=== PATIENT | male | born 1950 | race Caucasian/White ===

== ENCOUNTER 2019-01-25 07:14 | Emergency (ER) | payer MEDICARE, OTHER ==
[2019-01-25 07:23] VITALS: RESP 18
[2019-01-25] MEDS ORDERED: CYCLOBENZAPRINE 10 MG TAB PO STA (07:41)
[2019-01-25] MEDS ORDERED: HYDROmorphone 1 MG/ML 1 ML SYRINGE IM STA (07:41)
--- NOTE | 2019-01-25 07:49 | ED ---
Back Pain HPI - General Source: patient, RN notes reviewed Limitations: no limitations <Michael Leslie - Last Filed: 01/25/19 08:48> <Rakesh Figueroa - Last Filed: 01/25/19 15:16> - General Chief Complaint: Back Pain/Injury Stated Complaint: BACK PAIN Time Seen by Provider: 01/25/19 07:31 - History of Present Illness Initial Comments: 68-year-old male presents emergency Department with chief complaint of low back pain. Patient just started 5 days ago states when he woke up he sat up but little twinge in his back. He does have a history of 2 herniated disc in which she saw pain management for and had injections which alleviated all the symptoms. He's been symptom-free for urinary half. He did have an MRI at that time. He's had no recent imaging. Denies any bowel, bladder incontinence or retention. Patient states he does have some pain and paresthesia radiating to his groin and into his scrotum, the pain radiating only down his leg to his foot. Patient has no mental abdominal pain. Patient states that he cannot get comfortable. He states he has to keep changing positions. (Michael Leslie) - Related Data Home Medications Medication Instructions Recorded Confirmed Aspirin EC [Ecotrin Low Dose] 81 mg PO HS 01/25/19 01/25/19 Ibuprofen [Motrin] 600 mg PO Q8HR PRN 01/25/19 01/25/19 Levothyroxine Sodium [Synthroid] 88 mcg PO DAILY 01/25/19 01/25/19 Simvastatin [Zocor] 10 mg PO HS 01/25/19 01/25/19 Previous Rx's Medication Instructions Recorded Cyclobenzaprine [Flexeril] 10 mg PO TID PRN #15 tab 01/25/19 HYDROcodone/APAP 7.5-325MG [[place] 1 tab PO Q6HR PRN 3 Days #12 tab 01/25/19 7.5-325] predniSONE 50 mg PO DAILY #5 tab 01/25/19 Allergies Allergy/AdvReac Type Severity Reaction Status Date / Time No Known Allergies Allergy Verified 01/25/19 07:34 Review of Systems ROS Other: All systems not noted in ROS Statement are negative. <Michael Leslie - Last Filed: 01/25/19 08:48> ROS Other: All systems not noted in ROS Statement are negative. <Rakesh Figueroa - Last Filed: 01/25/19 15:16> ROS Statement: Those systems with pertinent positive or pertinent negative responses have been documented in the HPI. Past Medical History Additional Past Medical History / Comment(s): herniated disc History of Any Multi-Drug Resistant Organisms: None Reported Past Surgical History: Appendectomy Past Psychological History: No Psychological Hx Reported Smoking Status: Never smoker Past Alcohol Use History: None Reported Past Drug Use History: None Reported <RadhaMichael raymundo - Last Filed: 01/25/19 08:48> General Exam Limitations: no limitations General appearance: alert, in no apparent distress Head exam: Present: atraumatic, normocephalic, normal inspection Respiratory exam: Present: normal lung sounds bilaterally. Absent: respiratory distress, wheezes, rales, rhonchi, stridor Cardiovascular Exam: Present: regular rate, normal rhythm, normal heart sounds. Absent: systolic murmur, diastolic murmur, rubs, gallop, clicks GI/Abdominal exam: Present: soft, normal bowel sounds. Absent: distended, tenderness, guarding, rebound, rigid Extremities exam: Present: normal inspection, full ROM, normal capillary refill, other (Laboratory pulses equal bilaterally, neurovascular intact full strength). Absent: tenderness, pedal edema, joint swelling, calf tenderness Back exam: Present: normal inspection, full ROM (With), tenderness (Left paraspinal lumbar region), paraspinal tenderness, other (Pain with left straight leg raise). Absent: vertebral tenderness Neurological exam: Present: alert, oriented X3, CN II-XII intact Skin exam: Present: warm, dry, intact, normal color. Absent: rash <RadhaMichael raymundo - Last Filed: 01/25/19 08:48> Course <Rakesh Figueroa - Last Filed: 01/25/19 15:16> Vital Signs 01/25/19 01/25/19 07:19 08:58 Temperature 98.6 F 97.9 F Pulse Rate 70 62 Respiratory 18 18 Rate Blood Pressure 154/86 137/96 O2 Sat by Pulse 99 97 Oximetry - Reevaluation(s) Reevaluation #1: 01/25/19 15:16 PA supervision: I personally evaluate this case. CAT scan is consistent with previous MRI. No other acute findings. I do agree with the assessment, plan. Patient be discharged with follow-up as planned. (Rakesh Figueroa) Medical Decision Making <Michael Leslie - Last Filed: 01/25/19 08:48> - Medical Decision Making 68-year-old male presents emergency from for low back pain. Patient does have a history of herniated disc. CT was obtained at this time which is consistent with prior findings on MRI per what patient provided. Patient does not have any red flag symptoms. Patient be discharged with prednisone, [place], Flexeril. Patient will follow-up with Dr. Reynoso oh Dr. Kamara orthopedics associate. Return parameters were discussed. (Michael Leslie) Disposition Is patient prescribed a controlled substance at d/c from ED?: Yes When asked, does pt state using other controlled substances?: No If prescribed controlled substance>3 days was MAPS reviewed?: Prescribed <3 Days If opioid is for acute pain is fill amount 7 days or less?: Yes If Rx opioid, was Start Talking consent form obtained?: Yes Time of Disposition: 08:50 <Michael Leslie - Last Filed: 01/25/19 08:48> <Rakesh Figueroa - Last Filed: 01/25/19 15:16> Clinical Impression: Lumbar radiculopathy, acute, Lumbar disc herniation Disposition: HOME SELF-CARE Condition: Stable Instructions (If sedation given, give patient instructions): Acute Low Back Pain (ED), Lumbar Radiculopathy (ED) Additional Instructions: Please return to the Emergency Department if symptoms worsen or any other concerns. Prescriptions: Cyclobenzaprine [Flexeril] 10 mg PO TID PRN #15 tab PRN Reason: Muscle Spasm HYDROcodone/APAP 7.5-325MG [[place] 7.5-325] 1 tab PO Q6HR PRN 3 Days #12 tab PRN Reason: Pain predniSONE 50 mg PO DAILY #5 tab Referrals: Jonathan Vallecillo MD [Primary Care Provider] - 1-2 days Allie Bustos DO [Doctor of Osteopathic Medicine] - 1-2 days Leo Kamara MD [STAFF PHYSICIAN] - 1-2 days
--- NOTE | 2019-01-25 08:26 | CT ---
EXAMINATION TYPE: CT lumbar spine wo con DATE OF EXAM: 01/25/2019 COMPARISON: None HISTORY: Severe low back pain, , known bulging disc L4 and L5 CT DLP: 758.2 mGycm Automated exposure control for dose reduction was used. An unenhanced CT of the lumbar spine was performed. Bone and soft tissue window settings are submitt ed as well as coronal and sagittal reconstructions. FINDINGS: Punctate calcification at the upper pole the left kidney is nonobstructive, there are likely parapelv ic cysts within the left kidney, cortical cyst in the right kidney extrarenal pelvis on the right, no evident paraspinal mass. Lumbar vertebral bodies show preserved height and alignment. There is multilevel spondylosis. Loss of disc height is compatible with disc desiccation and degenerative disc disease, there is vacuum pheno lon at L4-5 and L5-S1. Mild spinal curvature is also present. L1-L2: Mild posterior broad-based disc bulge causes slight anterior mass effect on thecal sac, there is mild facet arthropathy, no significant central stenosis or foraminal encroachment L2-L3: There is a left posterior paracentral disc herniation extending towards the neural foramen and causing anterolateral mass effect on the thecal sac and possibly mass effect on the left nerve root. Mild facet arthropathy. L3-L4: Broad-based posterior disc bulge causes mild anterior mass effect on the thecal sac. No signif icant central stenosis. No definite foraminal encroachment on the left. Lateral extension of disc bul ge towards the right may encroach on the right neural foramen. There is some facet arthropathy change . Likely there is a Schmorl's node of the inferior endplate of L3, there is some associated sclerosis at the posterior inferior endplate. L4-L5: Facet arthropathy changes are present. Circumferential extension of endplate disc complex encr oaches on the foramina greater on the left. There is a posterior disc herniation suspected in the lef t posterior paracentral location. Hypertrophy ligamentum flavum is noted. Some mild central canal rebekah nosis may be present, there is minimal retrolisthesis grade 1 L4-5. L5-S1: There are facet arthropathy changes. No significant central stenosis. Circumferential extensio n of endplate disc complex causes some foraminal encroachment bilaterally. Mild posterior broad-based disc bulge is suspected. IMPRESSION: No paraspinal masses are identified. Lumbar segments are intact. Degenerative disc disease, facet ar thropathy, foraminal encroachment as described, MRI would likely be of increased sensitivity and spec ificity. Additional findings above.
[2019-01-25 09:00] VITALS: BP 137/96; PULSE 62; TEMP 97.9
== END 2019-01-25 08:58 | disposition home or self-care (01) ==
LOC: EC 07:14
DX: M51.16 Intervertebral disc disorders with radiculopathy, lumbar region (principal); Z79.82 Long term (current) use of aspirin; Z79.890 Hormone replacement therapy; Z79.899 Other long term (current) drug therapy
CPT/HCPCS: 72131; 99283; 96372; J1170

== ENCOUNTER 2023-10-30 15:54 | Emergency (ER) | payer MEDICARE, BC ==
[2023-10-30 16:05] VITALS: RESP 18; TEMP 97.9
--- NOTE | 2023-10-30 16:30 | ED ---
Dizziness HPI - General Chief Complaint: Dizziness Stated Complaint: VERTIGO Time Seen by Provider: 10/30/23 16:29 Source: patient, EMS, RN notes reviewed Mode of arrival: EMS Limitations: no limitations - History of Present Illness Initial Comments: Patient is a 73-year-old male presented to ER with a chief complaint of dizziness. Patient states last night when he got in bed he rolled over and he felt as if the room was spinning. He states that he got up around 4 AM and went to his recliner and felt extremely dizzy. He also endorsed chills. Denies any chest pain, shortness of breath or fevers. He has been diagnosed with vertigo in the past. He also states that he feels nauseous denies any vomiting. Denies abdominal pain, urinary symptoms, peripheral edema. He states any movement of his head increases his symptoms. Denies any feeling of passing out. - Related Data Home Medications Medication Instructions Recorded Confirmed Aspirin EC [Ecotrin Low Dose] 81 mg PO HS 01/25/19 01/25/19 Ibuprofen [Motrin] 600 mg PO Q8HR PRN 01/25/19 01/25/19 Levothyroxine Sodium [Synthroid] 88 mcg PO DAILY 01/25/19 01/25/19 Simvastatin [Zocor] 10 mg PO HS 01/25/19 01/25/19 Previous Rx's Medication Instructions Recorded Cyclobenzaprine [Flexeril] 10 mg PO TID PRN #15 tab 01/25/19 HYDROcodone/APAP 7.5-325MG [[place] 1 tab PO Q6HR PRN 3 Days #12 tab 01/25/19 7.5-325] predniSONE 50 mg PO DAILY #5 tab 01/25/19 Cetirizine HCl [Zyrtec] 10 mg PO DAILY #7 tab 06/09/23 Pseudoephedrine [Sudafed] 30 mg PO Q6H #12 tablet 06/09/23 Meclizine [Antivert] 12.5 mg PO Q6H #20 tablet 10/30/23 Allergies Allergy/AdvReac Type Severity Reaction Status Date / Time No Known Allergies Allergy Verified 06/06/23 00:19 Review of Systems ROS Statement: Those systems with pertinent positive or pertinent negative responses have been documented in the HPI. ROS Other: All systems not noted in ROS Statement are negative. Past Medical History Additional Past Medical History / Comment(s): herniated disc, covid + 9-2022 History of Any Multi-Drug Resistant Organisms: None Reported Past Surgical History: Appendectomy Past Psychological History: No Psychological Hx Reported Smoking Status: Never smoker Past Alcohol Use History: None Reported Past Drug Use History: None Reported General Exam Limitations: no limitations General appearance: alert, in no apparent distress Head exam: Present: atraumatic, normocephalic, normal inspection Eye exam: Present: normal appearance, PERRL, EOMI. Absent: scleral icterus, conjunctival injection, periorbital swelling Pupils: Present: normal accommodation ENT exam: Present: normal exam, mucous membranes moist Neck exam: Present: normal inspection. Absent: tenderness, meningismus, lymphadenopathy Respiratory exam: Present: normal lung sounds bilaterally. Absent: respiratory distress, wheezes, rales, rhonchi, stridor Cardiovascular Exam: Present: regular rate, normal rhythm, normal heart sounds. Absent: systolic murmur, diastolic murmur, rubs, gallop, clicks GI/Abdominal exam: Present: soft, normal bowel sounds. Absent: distended, tenderness, guarding, rebound, rigid Neurological exam: Present: alert, oriented X3, CN II-XII intact, other (Equal strength this bilaterally upper and lower extremities) Psychiatric exam: Present: normal affect, normal mood Skin exam: Present: warm, dry, intact, normal color. Absent: rash Course Vital Signs 10/30/23 10/30/23 15:58 18:28 Temperature 97.9 F Pulse Rate 63 58 L Respiratory 18 18 Rate Blood Pressure 145/90 151/72 O2 Sat by Pulse 100 97 Oximetry Medical Decision Making - Medical Decision Making Was pt. sent in by a medical professional or institution (, PA, TRACTOR SWEEPER DRIVER, urgent care, hospital, or halfway...) When possible be specific @ -No Did you speak to anyone other than the patient for history (EMS, parent, family, police, friend...)? What history was obtained from this source @ -No Did you review nursing and triage notes (agree or disagree)? Why? @ -I reviewed and agree with nursing and triage notes Were old charts reviewed (outside hosp., previous admission, EMS record, old EKG, old radiological studies, urgent care reports/EKG's, halfway records)? Report findings @ -No old charts were reviewed Differential Diagnosis (chest pain, altered mental status, abdominal pain women, abdominal pain men, vaginal bleeding, weakness, fever, dyspnea, syncope, headache, dizziness, GI bleed, back pain, seizure, CVA, palpatations, mental health, musculoskeletal)? @ -Differential Dizziness: Benign paroxysmal positional Vertigo, Menieres disease, otitis media, acoustic neuroma, vertebrobasilar insufficiency, cerebellar stroke, encephalitis, hypovolemic, arrhythmia, coronary artery syndrome, anemia, this is not meant to be an all-inclusive list EKG interpreted by me (3pts min.). @ -As above X-rays interpreted by me (1pt min.). @ -None done CT interpreted by me (1pt min.). @ -None done U/S interpreted by me (1pt. min.). @ -None done What testing was considered but not performed or refused? (CT, X-rays, U/S, labs)? Why? @ -None What meds were considered but not given or refused? Why? @ -None Did you discuss the management of the patient with other professionals (professionals i.e. , PA, TRACTOR SWEEPER DRIVER, lab, RT, psych nurse, social service assistant, commissary steward, teacher, veterans service officer, director of casework department)? Give summary @ -No Was smoking cessation discussed for >3mins.? @ -No Was critical care preformed (if so, how long)? @ -No Were there social determinants of health that impacted care today? How? (Homelessness, low income, unemployed, alcoholism, drug addiction, transportation, low edu. Level, literacy, decrease access to med. care, longterm, rehab)? @ -No Was there de-escalation of care discussed even if they declined (Discuss DNR or withdrawal of care, Hospice)? DNR status @ -No What co-morbidities impacted this encounter? (DM, HTN, Smoking, COPD, CAD, Cancer, CVA, ARF, Chemo, Hep., AIDS, mental health diagnosis, sleep apnea, morbid obesity)? @ -None Was patient admitted / discharged? Hospital course, mention meds given and route, prescriptions, significant lab abnormalities, going to OR and other pertinent info. @ -Discharge. Patient is a 73-year-old male presented to the ER via EMS with a chief complaint of dizziness. Patient states it is worse with positional changes and moving his head [id number]. EMS gave patient Zofran and route. History and physical exam were completed. Vitals stable. No acute neurological findings on exam. Patient in no signs of acute distress nontoxic-appearing. Labs obtained are unremarkable. Influenza, RSV, COVID negative. Patient received IV fluids and by mouth meclizine with mild improvement of his symptoms. Results discussed with patient, all questions answered. Advised patient to follow-up with PCP/ENT for further evaluation. Referral given. Patient prescribed meclizine. Return parameters were discussed. Patient be discharged stable condition with follow-up to PCP. Patient expressed understanding and agreement with care plan. Undiagnosed new problem with uncertain prognosis? @ -No Drug Therapy requiring intensive monitoring for toxicity (Heparin, Nitro, Insulin, Cardizem)? @ -No Were any procedures done? @ -No Diagnosis/symptom? @ -BPPV Acute, or Chronic, or Acute on Chronic? @ -Acute Uncomplicated (without systemic symptoms) or Complicated (systemic symptoms)? @ -Uncomplicated Side effects of treatment? @ -No Exacerbation, Progression, or Severe Exacerbation? @ -No Poses a threat to life or bodily function? How? (Chest pain, USA, CA, pneumonia, PE, COPD, DKA, ARF, appy, cholecystitis, CVA, Diverticulitis, Homicidal, Suicidal, threat to staff... and all critical care pts) @ -No - Lab Data Result diagrams: 10/30/23 16:40 10/30/23 16:40 Lab Results 10/30/23 10/30/23 10/30/23 Range/Units 16:40 16:40 16:40 WBC 7.3 (3.8-10.6) k/uL RBC 4.80 (4.30-5.90) m/uL Hgb 15.3 (13.0-17.5) gm/dL Hct 46.5 (39.0-53.0) % MCV 96.8 (80.0-100.0) fL MCH 31.9 (25.0-35.0) pg MCHC 33.0 (31.0-37.0) g/dL RDW 13.1 (11.5-15.5) % Plt Count 180 (150-450) k/uL MPV 7.7 Neutrophils % 84 % Lymphocytes % 10 % Monocytes % 4 % Eosinophils % 1 % Basophils % 0 % Neutrophils # 6.2 (1.3-7.7) k/uL Lymphocytes # 0.7 L (1.0-4.8) k/uL Monocytes # 0.3 (0-1.0) k/uL Eosinophils # 0.1 (0-0.7) k/uL Basophils # 0.0 (0-0.2) k/uL PT (10.0-12.5) sec INR (<1.2) APTT (22.0-30.0) sec Sodium 138 (137-145) mmol/L Potassium 4.6 (3.5-5.1) mmol/L Chloride 107 (98-107) mmol/L Carbon Dioxide 28 (22-30) mmol/L Anion Gap 3 mmol/L BUN 24 H (9-20) mg/dL Creatinine 0.99 (0.66-1.25) mg/dL Est GFR (CKD-EPI)AfAm 88 (>60 ml/min/1.73 sqM) Est GFR (CKD-EPI)NonAf 76 (>60 ml/min/1.73 sqM) Glucose 118 H (74-99) mg/dL Calcium 9.6 (8.4-10.2) mg/dL Total Bilirubin 0.8 (0.2-1.3) mg/dL AST 31 (17-59) U/L ALT 26 (4-49) U/L Alkaline Phosphatase 102 (38-126) U/L Troponin I <0.012 (0.000-0.034) ng/mL Total Protein 6.3 (6.3-8.2) g/dL Albumin 3.9 (3.5-5.0) g/dL Influenza Type A (PCR) (Not Detectd) Influenza Type B (PCR) (Not Detectd) RSV (PCR) (Not Detectd) SARS-CoV-2 (PCR) (Not Detectd) 10/30/23 10/30/23 Range/Units 16:40 16:40 WBC (3.8-10.6) k/uL RBC (4.30-5.90) m/uL Hgb (13.0-17.5) gm/dL Hct (39.0-53.0) % MCV (80.0-100.0) fL MCH (25.0-35.0) pg MCHC (31.0-37.0) g/dL RDW (11.5-15.5) % Plt Count (150-450) k/uL MPV Neutrophils % % Lymphocytes % % Monocytes % % Eosinophils % % Basophils % % Neutrophils # (1.3-7.7) k/uL Lymphocytes # (1.0-4.8) k/uL Monocytes # (0-1.0) k/uL Eosinophils # (0-0.7) k/uL Basophils # (0-0.2) k/uL PT 11.0 (10.0-12.5) sec INR 1.0 (<1.2) APTT 24.3 (22.0-30.0) sec Sodium (137-145) mmol/L Potassium (3.5-5.1) mmol/L Chloride (98-107) mmol/L Carbon Dioxide (22-30) mmol/L Anion Gap mmol/L BUN (9-20) mg/dL Creatinine (0.66-1.25) mg/dL Est GFR (CKD-EPI)AfAm (>60 ml/min/1.73 sqM) Est GFR (CKD-EPI)NonAf (>60 ml/min/1.73 sqM) Glucose (74-99) mg/dL Calcium (8.4-10.2) mg/dL Total Bilirubin (0.2-1.3) mg/dL AST (17-59) U/L ALT (4-49) U/L Alkaline Phosphatase (38-126) U/L Troponin I (0.000-0.034) ng/mL Total Protein (6.3-8.2) g/dL Albumin (3.5-5.0) g/dL Influenza Type A (PCR) Not Detected (Not Detectd) Influenza Type B (PCR) Not Detected (Not Detectd) RSV (PCR) Not Detected (Not Detectd) SARS-CoV-2 (PCR) Not Detected (Not Detectd) - EKG Data -: EKG Interpreted by [facility] EKG Comments: EKG taken at 18: 03 shows sinus bradycardia with no acute ST segment or T wave abnormalities. Ventricular rate 57, [place] interval 179, QRS duration 109, QT/QTc 418/413. Disposition Clinical Impression: Benign paroxysmal positional vertigo Disposition: HOME SELF-CARE Condition: Stable Instructions (If sedation given, give patient instructions): Dizziness (ED) Additional Instructions: Please follow-up with PCP in the next 1 to 2 days. Return to the ER for any new or worsening symptoms. Prescriptions: Meclizine [Antivert] 12.5 mg PO Q6H #20 tablet Is patient prescribed a controlled substance at d/c from ED?: No Referrals: Penny Buenrostro MD [STAFF PHYSICIAN] - 1-2 days Desean العراقي MD [STAFF PHYSICIAN] - 1-2 days Time of Disposition: 18:20
[2023-10-30] MEDS: MECLIZINE 12.5 MG TAB PO STA (16:51)
[2023-10-30] MEDS: SODIUM CHLORIDE 0.9% 1,000 ML IV STA (16:52)
[2023-10-30 16:58] LABS: Basophils % (A) 0 %; Eosinophils # (A) 0.1 k/uL (0-0.7); Eosinophils % (A) 1 %; HCT 46.5 % (39.0-53.0); HGB 15.3 gm/dL (13.0-17.5); Lymphocytes # (A) 0.7 k/uL (1.0-4.8); Lymphocytes % (A) 10 %; MCH 31.9 pg (25.0-35.0); MCV 96.8 fL (80.0-100.0); Mean Platelet Volume 7.7; Monocytes # (A) 0.3 k/uL (0-1.0); Monocytes % (A) 4 %; Neutrophils # (A) 6.2 k/uL (1.3-7.7); Neutrophils % (A) 84 %; Platelet Count 180 k/uL (150-450); RDW 13.1 % (11.5-15.5); WBC 7.3 k/uL (3.8-10.6)
[2023-10-30 17:07] LABS: Partial Thromboplastin Time 24.3 sec (22.0-30.0)
[2023-10-30 17:17] LABS: ALT 26 U/L (4-49); AST 31 U/L (17-59); African American GFR (CKD) 88 (>60 ml/min/1.73 sqM); Albumin 3.9 g/dL (3.5-5.0); Alkaline Phosphatase 102 U/L (38-126); Anion Gap 3 mmol/L; Blood Urea Nitrogen 24 mg/dL (9-20); Calcium 9.6 mg/dL (8.4-10.2); Carbon Dioxide 28 mmol/L (22-30); Chloride 107 mmol/L (98-107); Glucose 118 mg/dL (74-99); Non-African American GFR(CKD) 76 (>60 ml/min/1.73 sqM); Potassium 4.6 mmol/L (3.5-5.1); Sodium 138 mmol/L (137-145); Total Bilirubin 0.8 mg/dL (0.2-1.3); Total Protein 6.3 g/dL (6.3-8.2)
[2023-10-30 18:53] VITALS: BP 151/72; PULSE 58
== END 2023-10-30 18:29 | disposition home or self-care (01) ==
LOC: EC 15:54
DX: H81.10 Benign paroxysmal vertigo, unspecified ear (principal); Z79.82 Long term (current) use of aspirin; Z20.822 Contact with and (suspected) exposure to COVID-19
CPT/HCPCS: 36415; 80053; 84484; 85025; 85610; 85730; 87636; 93005; 96360; 96361; 99284